=== PATIENT | female | born 1935 | race Caucasian/White ===

== ENCOUNTER → 2017-02-13 | Outpatient (CLI) | payer MEDICARE, MEDICAID ==
[~2017-02-13] MED LIST: BUPIVACAINE MPF 0.25% 10 ML VIAL. ONE; IOHEXOL 300 MG/ML 50 ML VIAL. ONE; LIDOCAINE 1% PF 30 ML VIAL. ONE; methylPREDNISolone ACETATE 40 MG/ML VIAL. ONE
== END | disposition home or self-care (01) ==
LOC: SURG 14:57
PROVIDERS: ATTEND Anesthesiology Pain Medicine
DX: M54.16 Radiculopathy, lumbar region (principal); E07.9 Disorder of thyroid, unspecified; Z72.89 Other problems related to lifestyle; Z86.73 Personal history of transient ischemic attack (TIA), and cerebral infarction without residual deficits
CPT/HCPCS: 64483; 64484; J1030; J2001; J3490; Q9967

== ENCOUNTER → 2017-03-20 | Outpatient (CLI) | payer MEDICARE, MEDICAID | END | disposition home or self-care (01) | LOC: SURG 13:20 | PROVIDERS: ATTEND Family Medicine | DX: M54.16 Radiculopathy, lumbar region (principal) | CPT/HCPCS: 99214 ==

== ENCOUNTER → 2017-05-08 | Outpatient (CLI) | payer MEDICARE, MEDICAID ==
[~2017-05-08] MED LIST changes: +DEXAMETHASONE SOD PHOS 4 MG/ML VIAL ONE; -IOHEXOL 300 MG/ML 50 ML VIAL. ONE; -methylPREDNISolone ACETATE 40 MG/ML VIAL. ONE
== END | disposition home or self-care (01) ==
LOC: SURG 14:06
PROVIDERS: ATTEND Anesthesiology Pain Medicine
DX: M54.16 Radiculopathy, lumbar region (principal)
CPT/HCPCS: 64483; 64484; J1100; J2001; J3490

== ENCOUNTER → 2017-09-25 | Day surgery (SDC) | payer MEDICARE, MEDICAID ==
[~2017-09-25] MED LIST changes: +AMLO5TAB2 PO; +ASPI81TA50 PO; +ATOR20TA PO; +BACITRACIN 50,000 UNIT VIAL. ONE; -BUPIVACAINE MPF 0.25% 10 ML VIAL. ONE; +BUPIVACAINE MPF 0.5% 30 ML VIAL. ONE; +CLINDAMYCIN 600MG PREMIX 50 ML IV ONE; +CLINDAMYCIN PREMIX 600 MG/50 ML BAG IV ONE; +CLOP75TA57 PO; +FAMOTIDINE 20 MG/2 ML VIAL ONE; +HYDR-971 PO; +IV RINGERS SOLUTION,LACTATED 1,000 ML IV SCH; +LEVO100T5 PO; +LIDOCAINE 0.5% ONE; +LIDOCAINE 1% PF 2 ML VIAL. ID PRN; +LIDOCAINE 1%/EPI 1:200,000 PF 30 ML VIAL. ONE; +LIDOCAINE 2% 20 ML VIAL. ONE; +MIDAZOLAM HCL PF 2 MG/2 ML VIAL. IV ONE; +MIDAZOLAM HCL PF 2 MG/2 ML VIAL. ONE; +ONDANSETRON PF 4 MG/2 ML VIAL. IV PRN; +ONDANSETRON PF 4 MG/2 ML VIAL. ONE; +PHEN100C PO; +PROCHLORPERAZINE 10 MG/2 ML VIAL. IV PRN; +PROPOFOL 10,000 MCG/ML (20ML) VIAL IV ONE; +PROPOFOL 20 ML IV ONE; +RANI150T21 PO; +TRIA15CR50 TP; +TRIA1CAP3 PO
[2017-09-25 14:15] VITALS: BP 120/76
== END ==
LOC: SURG 08:08 → EDSEX 09:15
PROVIDERS: ATTEND Anesthesiology Pain Medicine
DX: M51.16 Intervertebral disc disorders with radiculopathy, lumbar region (principal); E03.9 Hypothyroidism, unspecified; K21.9 Gastro-esophageal reflux disease without esophagitis; Z98.890 Other specified postprocedural states; Z90.49 Acquired absence of other specified parts of digestive tract; Z86.73 Personal history of transient ischemic attack (TIA), and cerebral infarction without residual deficits; Z87.39 Personal history of other diseases of the musculoskeletal system and connective tissue; Z79.82 Long term (current) use of aspirin; Z88.6 Allergy status to analgesic agent; Z88.1 Allergy status to other antibiotic agents; Z88.0 Allergy status to penicillin; Z72.89 Other problems related to lifestyle
CPT/HCPCS: 62380; J1100; J2001; J2250; J2405; J2704; J3010; J3490; J7120; S0028

== ENCOUNTER → 2017-09-25 | Outpatient (CLI) | payer MEDICARE, MEDICAID ==
[~2017-09-25] MED LIST changes: -BACITRACIN 50,000 UNIT VIAL. ONE; -BUPIVACAINE MPF 0.5% 30 ML VIAL. ONE; -CLINDAMYCIN 600MG PREMIX 50 ML IV ONE; -CLINDAMYCIN PREMIX 600 MG/50 ML BAG IV ONE; -DEXAMETHASONE SOD PHOS 4 MG/ML VIAL ONE; -FAMOTIDINE 20 MG/2 ML VIAL ONE; -IV RINGERS SOLUTION,LACTATED 1,000 ML IV SCH; -LIDOCAINE 0.5% ONE; -LIDOCAINE 1% PF 2 ML VIAL. ID PRN; -LIDOCAINE 1% PF 30 ML VIAL. ONE; -LIDOCAINE 1%/EPI 1:200,000 PF 30 ML VIAL. ONE; -LIDOCAINE 2% 20 ML VIAL. ONE; -MIDAZOLAM HCL PF 2 MG/2 ML VIAL. IV ONE; -MIDAZOLAM HCL PF 2 MG/2 ML VIAL. ONE; -ONDANSETRON PF 4 MG/2 ML VIAL. IV PRN; -ONDANSETRON PF 4 MG/2 ML VIAL. ONE; -PROCHLORPERAZINE 10 MG/2 ML VIAL. IV PRN; -PROPOFOL 10,000 MCG/ML (20ML) VIAL IV ONE; -PROPOFOL 20 ML IV ONE
[2017-09-25 10:45] LABS: BASO % 1 % (0-3); EOS # 0.1 x10^3/uL (0.0-0.7); EOS % 2 % (0-3); HEMATOCRIT 40.7 % (36.0-47.0); HEMOGLOBIN 14.2 g/dL (12.0-15.5); LYMPH # 0.9 x10^3/uL (1.0-4.8); LYMPH % 18 % (24-48); MEAN CORPUSCULAR HEMOGLOBIN 33 pg (25-35); MEAN CORPUSCULAR HGB CONC 35 g/dL (31-37); MEAN CORPUSCULAR VOLUME 94 fL (79-100); MONO # 0.3 x10^3/uL (0.0-1.1); MONO % 6 % (0-9); NEUT # 3.5 x10^3uL (1.8-7.7); NEUT % 74 % (31-73); PLATELET COUNT 267 x10^3/uL (140-400); RED BLOOD COUNT 4.32 x10^6/uL (3.50-5.40); RED CELL DISTRIBUTION WIDTH 12.7 % (11.5-14.5); WHITE BLOOD COUNT 4.8 x10^3/uL (4.0-11.0)
[2017-09-25 10:49] LABS: BILIRUBIN,URINE NEG (NEG); CLARITY,URINE HAZY; COLOR,URINE YELLOW; GLUCOSE,URINE NEG (NEG)
[2017-09-25 10:50] LABS: BACTERIA,URINE 0 /HPF (0-FEW); NITRITE,URINE NEG (NEG); RBC,URINE OCC /HPF (0-2); SQUAMOUS EPITHELIAL CELL,UR OCC /LPF; UROBILINOGEN,URINE 0.2 mg/dL (0.2 mg/dL); WBC,URINE OCC /HPF (0-4)
== END | disposition home or self-care (01) ==
LOC: LAB 07:39
PROVIDERS: ATTEND Anesthesiology Pain Medicine
DX: Z01.818 Encounter for other preprocedural examination (principal); E07.9 Disorder of thyroid, unspecified
CPT/HCPCS: 36415; 81001; 85025; 85610; 85730; 87086

== ENCOUNTER 2018-03-05 15:58 | Emergency (ER) | payer MEDICARE, MEDICAID ==
[~2018-03-05] VITALS: Ht 165.1 cm; Wt 74.4 kg
[~2018-03-05 15:58] MED LIST changes: -0.9 % SODIUM CHLORIDE 10 ML VIAL ONE; -ALBUTEROL SULFATE 2.5 MG/3 ML NEBU. NEB PRN; -ATROPINE 0.5 MG/5 ML DISP.SYRIN. IV PRN; -BUPIVACAINE MPF 0.5% 30 ML VIAL. ONE; -CLINDAMYCIN 600MG PREMIX 50 ML IV ONE; -DEXAMETHASONE SOD PHOS 10 MG/ML VIAL ONE; -DEXAMETHASONE SOD PHOS 4 MG/ML VIAL IV ONE; -DEXAMETHASONE SOD PHOS 4 MG/ML VIAL ONE; -GADOBUTROL 10 MMOL/10 ML VIAL IV ONE; -IV RINGERS SOLUTION,LACTATED 1,000 ML IV SCH; -KETOROLAC 30 MG/ML VIAL. IV ONE; -KETOROLAC 30 MG/ML VIAL. ONE; -LIDOCAINE 1% PF 30 ML VIAL. ONE; -LIDOCAINE 2% PF Vial for OR 5 ML VIAL. ONE; -NALOXONE 0.4 MG/ML VIAL. IV PRN; -ONDANSETRON PF 4 MG/2 ML VIAL. IV ONE; -ONDANSETRON PF 4 MG/2 ML VIAL. IV PRN; -PROCHLORPERAZINE 10 MG/2 ML VIAL. IV PRN; -PROPOFOL 40 ML IV ONE; -diphenhydrAMINE 50 MG/ML VIAL IV PRN; -diphenhydrAMINE 50 MG/ML VIAL ONE; -oxyCODONE/APAP 5/325 1 TAB TABLET PO PRN
--- NOTE | 2018-03-05 16:21 | PHYS DOC ---
Adult General Chief Complaint Chief Complaint: ALTERED MENTAL STATUS HPI HPI 82-year-old female presents from post procedure recovery with altered mental status. The patient had a spinal decompression procedure done earlier today by Dr. Dominguez. Afterwards she complained of some dizziness and nausea. She had several rounds of vomiting and was given multiple antiemetics. It is reported that she vomited through these. The decision was made to have her admitted for further observation. There was going to be a delay in transport to EMS being so busy. The patient continued to become more confused and have altered mental status. She had 3 episodes of bradycardia into the 30s. 2 of these resolved spontaneously, the third atropine was given. About 2 hours prior to arriving in the emergency room the patient is mental status seemed to decline markedly. Due to the delay for EMS transport to [facility], the decision was made to bring her to the emergency room here at [facility]. The patient is repeating over and over again that she needs to go to the bathroom. She is not reliably answering any other questions. Review of Systems Review of Systems Limited due to altered mental status Constitutional: Denies fever or chills [] Eyes: [] HENT: [] Respiratory: Denies cough or shortness of breath [] Cardiovascular: No additional information not addressed in HPI [] GI: Nausea, vomiting[] : [] Musculoskeletal: [] Integument: [] Neurologic: Dizziness[] Endocrine: D [] All other systems were reviewed and found to be within normal limits, except as documented in this note. Allergies Allergies Allergies Coded Allergies Type Severity Reaction Last Updated Verified Penicillins Allergy Unknown 09/25/17 Yes doxycycline Allergy Unknown 09/25/17 Yes iodine Allergy Unknown 09/25/17 Yes morphine Allergy Unknown 09/25/17 Yes Physical Exam Physical Exam Constitutional: Well developed, well nourished, mild distress, non-toxic appearance. [] HENT: Normocephalic, atraumatic, bilateral external ears normal, oropharynx moist, no oral exudates, nose normal. [] Eyes: PERRLA, EOMI, conjunctiva normal, no discharge. [] Neck: Normal range of motion, no tenderness, supple, no stridor. [] Cardiovascular:Heart rate regular rhythm, rate 113, [] Lungs & Thorax: Bilateral breath sounds clear to auscultation [] Abdomen: Bowel sounds normal, soft, no tenderness, no masses, no pulsatile masses. [] Skin: Warm, dry, no erythema, no rash. [] Back: No tenderness, no CVA tenderness. [] Extremities: No tenderness, no cyanosis, no clubbing, ROM intact, no edema. [] Neurologic: Altered mental status. Repeating the same phrases over and over.[] Psychologic: Anxious[] EKG EKG Sinus rhythm, rate 93, normal axis, prolonged QTC, no ST elevations or depressions.[] Radiology/Procedures Radiology/Procedures [] Course & Med Decision Making Course & Med Decision Making Pertinent Labs and Imaging studies reviewed. (See chart for details) EKG is unremarkable except for prolonged QTC. Labs are remarkable for potassium of 3.1. Patient's head CT shows air in the cranium as well as contrast and a subarachnoid bleed. I discussed the case with the neurosurgeon, Dr. Lazcano and he is concerned it could be a large amount of blood. He is going into the procedure at this time and recommends transfer to . I have discussed the patient with the transfer center at . The patient was accepted by Dr. Mcdonald for transfer. She will go emergently by ground ambulance. While the patient was in the emergency room, she became less aware of her surroundings. She was only responding to painful stimuli, but she was still spontaneously moving her arms and had a protected airway. At no time did she have difficulty breathing. The transfer center and did not want to delay transport to consider intubation. I do not believe that she was absolutely necessary prior to transfer. [] Dragon Disclaimer Dragon Disclaimer This electronic medical record was generated, in whole or in part, using a voice recognition dictation system. Departure Departure: Referrals: SHADY HERNANDEZ MD (PCP) VIV MARTÍNEZ DO Mar 05, 2018 16:21
[2018-03-05 16:31] LABS: HEMATOCRIT 42.7 % (36.0-47.0); HEMOGLOBIN 14.6 g/dL (12.0-15.5); RED BLOOD COUNT 4.55 x10^6/uL (3.50-5.40); RED CELL DISTRIBUTION WIDTH 13.1 % (11.5-14.5); WHITE BLOOD COUNT 10.2 x10^3/uL (4.0-11.0)
[2018-03-05 16:43] LABS: CALCIUM 8.9 mg/dL (8.5-10.1); CREATININE 0.6 mg/dL (0.6-1.0); GFR 96.2; POTASSIUM 3.1 mmol/L (3.5-5.1)
--- NOTE | 2018-03-05 16:46 | RAD ---
CT head without intravenous contrast History: Altered mental status and hypoxia. Code stroke. Patient had some sort of lumbar procedure. Comparison: None. Technique: Axial images are obtained of the head from the skull base through the vertex without IV contrast. Exposure: One or more of the following individualized dose reduction techniques were utilized for this examination: 1. Automated exposure control 2. Adjustment of the mA and/or kV according to patient size 3. Use of iterative reconstruction technique Findings: Mild-moderate pneumocephalus is seen, appears confined to the subarachnoid space and within the right lateral ventricle. There is a large amount of dense material involving the subarachnoid space, can be seen in the basal cisterns as well as in the Sylvian fissures. There is relative sparing of superior hemispheric sulci. No convincing intracranial mass is identified. Evaluation for acute ischemic infarction is limited.. Bone windows demonstrate no acute calvarial abnormality. The visualized paranasal sinuses appear clear. Impression: 1. Mild-moderate pneumocephalus, presumably iatrogenic. 2. Large amount of dense material is seen involving the subarachnoid space. Given recent procedure, if there was intentional or inadvertent injection of contrast material into the thecal sac, this could be intrathecal contrast. Alternatively, a large amount of acute subarachnoid hemorrhage can have this appearance. 3. Results were called to emergency from staff, Dr. Dacosta, at 1634 hours. Electronically signed by: Sidney Monroe MD (03/05/2018 4:42 PM) [place] [id number]
[2018-03-05 17:25] VITALS: BP 137/62
--- NOTE | 2018-03-05 18:17 | EKG ---
[address] [address] Test Date: 2018-03-05 Test Time: 16:03:22 Pat Name: PEGGY NUÑEZ Department: Room: Gender: F Kit Planner: : [id number] Requested By: VIV MARTÍNEZ Order Number: [id number] Reading MD: Ancelmo Palacio MD Measurements Intervals [place] Rate: 93 P: 9 TN: 192 QRS: 41 QRSD: 94 T: 32 QT: 394 QTc: 493 Interpretive Statements SINUS RHYTHM PROLONGED QT Electronically Signed On 03-10-2018 8:20:39 LABORATORY TECHNICAL SPECIALIST by Ancelmo Palacio MD
== END 2018-03-05 17:25 | disposition short-term general hospital (02) ==
LOC: ER 15:58
DX: I60.9 Nontraumatic subarachnoid hemorrhage, unspecified (principal); F41.9 Anxiety disorder, unspecified; Z88.0 Allergy status to penicillin; Z88.1 Allergy status to other antibiotic agents; Z91.041 Radiographic dye allergy status; Z88.5 Allergy status to narcotic agent
CPT/HCPCS: 36415; 51701; 70450; 80048; 84484; 85027; 85610; 85730; 93005; 99291-25

== ENCOUNTER → 2018-03-05 | Day surgery (SDC) | payer MEDICARE, MEDICAID ==
[~2018-03-05] MED LIST changes: +0.9 % SODIUM CHLORIDE 10 ML VIAL ONE; +ALBUTEROL SULFATE 2.5 MG/3 ML NEBU. NEB PRN; -AMLO5TAB2 PO; +AMLO5TAB7 PO; +ATROPINE 0.5 MG/5 ML DISP.SYRIN. IV PRN; +BUPIVACAINE MPF 0.5% 30 ML VIAL. ONE; +CLINDAMYCIN 600MG PREMIX 50 ML IV ONE; +DEXAMETHASONE SOD PHOS 10 MG/ML VIAL ONE; +DEXAMETHASONE SOD PHOS 4 MG/ML VIAL IV ONE; +DEXAMETHASONE SOD PHOS 4 MG/ML VIAL ONE; +GADOBUTROL 10 MMOL/10 ML VIAL IV ONE; +HYDR-3165 PO; -HYDR-971 PO; +IV RINGERS SOLUTION,LACTATED 1,000 ML IV SCH; +KETOROLAC 30 MG/ML VIAL. IV ONE; +KETOROLAC 30 MG/ML VIAL. ONE; +LIDOCAINE 1% PF 30 ML VIAL. ONE; +LIDOCAINE 2% PF Vial for OR 5 ML VIAL. ONE; +NALOXONE 0.4 MG/ML VIAL. IV PRN; +ONDANSETRON PF 4 MG/2 ML VIAL. IV ONE; +ONDANSETRON PF 4 MG/2 ML VIAL. IV PRN; +PROCHLORPERAZINE 10 MG/2 ML VIAL. IV PRN; +PROPOFOL 40 ML IV ONE; +diphenhydrAMINE 50 MG/ML VIAL IV PRN; +diphenhydrAMINE 50 MG/ML VIAL ONE; +oxyCODONE/APAP 5/325 1 TAB TABLET PO PRN
[2018-03-05 15:45] VITALS: BP 149/62
== END | disposition home or self-care (01) ==
LOC: SURG 08:56
PROVIDERS: ATTEND Anesthesiology Pain Medicine
DX: Z00.6 Encounter for examination for normal comparison and control in clinical research program (principal); M48.062 Spinal stenosis, lumbar region with neurogenic claudication; I10 Essential (primary) hypertension; R56.9 Unspecified convulsions; E03.9 Hypothyroidism, unspecified; K21.9 Gastro-esophageal reflux disease without esophagitis; I00 Rheumatic fever without heart involvement; Z88.0 Allergy status to penicillin; Z91.041 Radiographic dye allergy status; Z88.6 Allergy status to analgesic agent; Z79.82 Long term (current) use of aspirin; Z85.828 Personal history of other malignant neoplasm of skin; Z79.899 Other long term (current) drug therapy; Z86.73 Personal history of transient ischemic attack (TIA), and cerebral infarction without residual deficits
CPT/HCPCS: 0275T; 82947; A9585; J0461; J0780; J1100; J1200; J1885; J2001; J2405; J2704; J3010; J3490